=== PATIENT | female | born 1945 | race Two or more races ===

== ENCOUNTER 2022-02-25 13:00 | Inpatient (IN) | payer OTHER, MEDICARE, MEDICAID ==
[~2022-02-25] VITALS: Ht 152.4 cm; Wt 53.4 kg
[2022-02-25 14:30] LABS: Basophils # (auto) 0.1 10 ^3/uL (0-0.2); Basophils % (auto) 1.4 % (0.0-2.0); Eosinophils # (auto) 0.5 10 ^3/uL (0-0.8); Eosinophils % (auto) 7.4 % (0.0-7.0); Hemoglobin 10.6 g/dL (12.2-16.2); Lymphocytes # (auto) 2.2 10 ^3/uL (0.4-5.4); Lymphocytes % (auto) 36.2 % (10.0-50.0); Mean Corpuscular Hemoglobin 28.2 pg (28.0-32.0); Monocytes # (auto) 0.5 10 ^3/uL (0-1.3); Monocytes % (auto) 7.3 % (0.0-12.0); Neutrophils # (auto) 2.9 10 ^3/uL (1.6-8.6); Neutrophils % (auto) 47.7 % (37.0-80.0); Nucleated Red Blood Cells % 0.1 %; Red Blood Cells 3.74 10^6/uL (4.0-5.20); Red Cell Distribution Width 15.2 % (11.8-14.3); White Blood Cell 6.2 10^3/uL (4.4-10.8)
[2022-02-25 14:52] LABS: Anion Gap 9 (5-15); BUN/Creatinine Ratio 13.6; Blood Urea Nitrogen 44 mg/dL (7-18); Calcium 7.2 mg/dL (8.5-10.1); Carbon Dioxide 12 mmol/L (21-32); Chloride 121 mmol/L (98-107); GFR African American 18 mL/min; GFR Non-African American 15 mL/min; Glucose 78 mg/dL (74-106); Sodium 142 mmol/L (136-145)
[2022-02-25 15:01] LABS: Alanine Aminotransferase 9 U/L (13-56); Alkaline Phosphatase 137 U/L (45-117); Aspartate Aminotransferase 18 U/L (15-37); Bilirubin, Total 0.3 mg/dL (0.2-1.0); Total Protein 6.2 g/dL (6.4-8.2)
[2022-02-25 15:11] LABS: Potassium 5.8 mmol/L (3.5-5.1)
[2022-02-25] MEDS ORDERED: SODIUM ZIRCONIUM CYCL 10 GM PAK PO ONE (15:30)
[2022-02-25] MEDS ORDERED: InsuLIN REG 1unit/0.01ml Soln (100units/ml) IV ONE (15:30)
[2022-02-25] MEDS ORDERED: FUROSEMIDE 20 MG/2 ML VIAL IV ONE (15:30)
[2022-02-25] MEDS ORDERED: ENOXAPARIN SOD 60 MG/0.6 ML SYRINGE SC ONE (15:30)
[2022-02-25] MEDS ORDERED: CALCIUM GLUC 1,000mg/50ml-NS 50 ML IV ONE (15:30)
[2022-02-25] MEDS ORDERED: ALBUTEROL SULF 2.5 MG/0.5ML(0.5%) NEB SOLN NEB ONE (15:30)
[2022-02-25] MEDS ORDERED: DEXTROSE (50%) 50ML SYRG IV ONE (15:30)
[2022-02-25] MEDS ORDERED: SODIUM BICARBONATE 8.4% INJ 50ML SYRINGE IV ONE (15:30)
[2022-02-25] MEDS ORDERED: SODIUM CHLORIDE 0.9% 1,000 ML IV ONE ×2 (17:00→17:30)
[2022-02-25] MEDS ORDERED: ONDANSETRON HCL 4 MG/2 ML VIAL IV PRN (17:15)
[2022-02-25] MEDS ORDERED: NOREPINEPHRINE 8 MG/250ML KIT 250 ML IV SCH (17:30)
[2022-02-25] MEDS ORDERED: AMIODARONE HCL 150 MG in D5W 5% 100 ML IV ONE (18:15)
[2022-02-25] MEDS ORDERED: AMIODARONE 450mg/250ml AE 250 ML IV SCH (18:30)
[2022-02-25] MEDS: SODIUM CHLORIDE 0.9% 1,000 ML IV SCH (18:41)
[2022-02-25 18:58] LABS: Thyroid Stimulating Hormone 4.8 uIU/mL (0.358-3.74)
[2022-02-25] MEDS ORDERED: DEXTROSE (50%) 50ML SYRG IV PRN (20:00)
[2022-02-25 20:02] LABS: Magnesium 2.2 mg/dL (1.6-2.6)
[2022-02-25 22:31] LABS: Urine Bacteria FEW /hpf (None Seen); Urine Blood TRACE /uL (Negative); Urine Specific Gravity 1.008 (1.001-1.035); Urine WBC 3 /hpf (0 - 5)
[2022-02-25 22:43] LABS: Sodium Urine 43 mmol/L (40-220)
[2022-02-25 22:44] LABS: Creatinine, Urine 61 mg/dL (30.0-125.0)
[2022-02-25 22:46] LABS: Alcohol, Urine < 3.0 mg/dL (0-10); Amphetamine Screen, Urine NEGATIVE (NEGATIVE); Barbiturate Scree,Urine NEGATIVE (NEGATIVE); Benzodiazephine Screen, Urine NEGATIVE (NEGATIVE); Cannabinoid Screen, Urine NEGATIVE (NEGATIVE); Cocaine Screen, Urine NEGATIVE (NEGATIVE); Opiate Scree,Urine NEGATIVE (NEGATIVE); Phencyclidine Screen, Urine NEGATIVE (NEGATIVE)
[2022-02-26] MEDS: ACCU-CHEK COMFORT CURVE STRIP VI SCH ×4 (00:24→17:38)
[2022-02-26 06:50] LABS: Basophils # (auto) 0.1 10 ^3/uL (0-0.2); Basophils % (auto) 0.9 % (0.0-2.0); Eosinophils # (auto) 0.1 10 ^3/uL (0-0.8); Eosinophils % (auto) 1.1 % (0.0-7.0); Hematocrit 31.9 % (36.0-46.0); Lymphocytes # (auto) 2.6 10 ^3/uL (0.4-5.4); Lymphocytes % (auto) 25.3 % (10.0-50.0); Mean Corpuscular Hemoglobin 28.6 pg (28.0-32.0); Mean Corpuscular Hgb Conc. 31.5 g/dL (32.0-36.0); Mean Corpuscular Volume 90.9 fL (80.0-100.0); Monocytes # (auto) 0.7 10 ^3/uL (0-1.3); Monocytes % (auto) 6.7 % (0.0-12.0); Neutrophils # (auto) 6.7 10 ^3/uL (1.6-8.6); Nucleated Red Blood Cells % 0.1 %; Red Blood Cells 3.51 10^6/uL (4.0-5.20); Red Cell Distribution Width 15.1 % (11.8-14.3); White Blood Cell 10.1 10^3/uL (4.4-10.8)
[2022-02-26 07:08] LABS: Albumin 3.1 g/dL (3.4-5.0); Calcium 7.2 mg/dL (8.5-10.1); Potassium 4.9 mmol/L (3.5-5.1)
[2022-02-26 07:12] LABS: BUN/Creatinine Ratio 12.5; Bilirubin, Total 0.3 mg/dL (0.2-1.0); Total Protein 6.1 g/dL (6.4-8.2)
[2022-02-26] MEDS ORDERED: ENOXAPARIN SOD 60 MG/0.6 ML SYRINGE SC SCH (10:00)
[2022-02-26] MEDS: ENOXAPARIN SOD 60 MG/0.6 ML SYRINGE SC SCH (10:16)
[2022-02-26] MEDS: InsuLIN REG 1unit/0.01ml Soln (100units/ml) SC SCH ×4 (10:26→17:38)
[2022-02-26] MEDS: SODIUM CHLORIDE 0.9% 1,000 ML IV SCH ×3 (10:32→23:15)
[2022-02-26] MEDS: AMIODARONE HCL 200 MG TAB PO SCH ×2 (10:45→21:41)
[2022-02-26 16:08] VITALS: BP 150/84
[2022-02-26 20:20] VITALS: BP 158/67
[2022-02-26 22:00] VITALS: BP 169/67
[2022-02-27] VITALS (7 sets, daily range): BP systolic 129–162; BP diastolic 62–89
[2022-02-27] MEDS ORDERED: PANC3600 BC (04:31)
[2022-02-27] MEDS ORDERED: OMEP20TA PO (04:40)
[2022-02-27] MEDS ORDERED: LOPE2CAP PO (04:40)
[2022-02-27] MEDS ORDERED: DONETAB5 PO (04:40)
[2022-02-27] MEDS ORDERED: CETI10TA2 PO (04:40)
[2022-02-27] MEDS ORDERED: [UNRECOGNIZED DRUG - CODE] PO (04:40)
[2022-02-27] MEDS ORDERED: FERR325T20 PO (04:40)
[2022-02-27] MEDS ORDERED: ONDA-144 PO (04:40)
[2022-02-27] MEDS: ACCU-CHEK COMFORT CURVE STRIP VI SCH ×4 (05:41→17:46)
[2022-02-27] MEDS: InsuLIN REG 1unit/0.01ml Soln (100units/ml) SC SCH ×4 (05:41→17:46)
[2022-02-27 05:48] LABS: Basophils # (auto) 0.1 10 ^3/uL (0-0.2); Basophils % (auto) 1.2 % (0.0-2.0); Eosinophils # (auto) 0.5 10 ^3/uL (0-0.8); Eosinophils % (auto) 4.7 % (0.0-7.0); Hematocrit 33.8 % (36.0-46.0); Hemoglobin 10.8 g/dL (12.2-16.2); Lymphocytes # (auto) 2.3 10 ^3/uL (0.4-5.4); Lymphocytes % (auto) 21.5 % (10.0-50.0); Mean Corpuscular Hemoglobin 28.6 pg (28.0-32.0); Mean Corpuscular Hgb Conc. 31.9 g/dL (32.0-36.0); Mean Corpuscular Volume 89.7 fL (80.0-100.0); Monocytes # (auto) 0.8 10 ^3/uL (0-1.3); Monocytes % (auto) 7.1 % (0.0-12.0); Neutrophils % (auto) 65.5 % (37.0-80.0); Nucleated Red Blood Cells % 0.1 %; Red Blood Cells 3.76 10^6/uL (4.0-5.20); White Blood Cell 10.7 10^3/uL (4.4-10.8)
[2022-02-27 05:55] LABS: Calcium 7.3 mg/dL (8.5-10.1); Potassium 5.1 mmol/L (3.5-5.1)
[2022-02-27 05:57] LABS: BUN/Creatinine Ratio 13.6; Uric Acid 5.4 mg/dL (2.6-6.0)
[2022-02-27] MEDS ORDERED: SOD CHL 0.45% 1,000 ML IV SCH (08:00)
[2022-02-27] MEDS: ENOXAPARIN SOD 60 MG/0.6 ML SYRINGE SC SCH (09:55)
[2022-02-27] MEDS: AMIODARONE HCL 200 MG TAB PO SCH ×2 (09:55→22:09)
[2022-02-27] MEDS: SODIUM BICARBONATE 50ML VIAL 100 ML in D5W 5% 1,000 ML IV SCH ×2 (11:06→22:45)
[2022-02-27] MEDS ORDERED: hydrALAZINE HCL 20 MG/ML VL IV PRN (13:00)
[2022-02-27] MEDS ORDERED: METOPROLOL SUCCINATE XL 50 MG TAB PO ONE (13:00)
[2022-02-28] VITALS (8 sets, daily range): BP systolic 111–170; BP diastolic 51–76
[2022-02-28] MEDS: ACCU-CHEK COMFORT CURVE STRIP VI SCH ×4 (00:31→18:00)
[2022-02-28] MEDS: InsuLIN REG 1unit/0.01ml Soln (100units/ml) SC SCH ×4 (00:31→18:21)
[2022-02-28] MEDS: ACETAMINOPHEN 500 MG TAB PO PRN ×2 (00:48→10:07)
[2022-02-28] MEDS: SODIUM BICARBONATE 50ML VIAL 100 ML in D5W 5% 1,000 ML IV SCH ×2 (06:45→11:17)
[2022-02-28] MEDS: AMIODARONE HCL 200 MG TAB PO SCH ×2 (09:36→21:31)
[2022-02-28] MEDS: APIXABAN 5 MG TAB PO SCH ×2 (09:39→21:31)
[2022-02-28] MEDS ORDERED: METOPROLOL SUCCINATE XL 50 MG TAB PO SCH (10:00)
[2022-02-28 21:07] LABS: Urine Bacteria FEW /hpf (None Seen); Urine Blood 3+ /uL (Negative); Urine Specific Gravity 1.009 (1.001-1.035); Urine WBC 1265 /hpf (0 - 5); Urine WBC Clumps PRESENT /hpf (None Seen)
[2022-02-28 21:19] LABS: Protein, Urine 45.1 mg/dL (0.0-11.9)
[2022-03-01] MEDS: ACCU-CHEK COMFORT CURVE STRIP VI SCH ×4 (00:13→18:24)
[2022-03-01] MEDS: SODIUM BICARBONATE 50ML VIAL 100 ML in D5W 5% 1,000 ML IV SCH (01:34)
[2022-03-01] MEDS ORDERED: LIDOCAINE 2%HCL (LOCAL ANESTH.) INJ 20ML MDV ONE (04:34)
[2022-03-01 04:39] VITALS: BP 134/53
[2022-03-01 05:33] LABS: Albumin 2.5 g/dL (3.4-5.0); BUN/Creatinine Ratio 10.8; Calcium 6.7 mg/dL (8.5-10.1); Potassium 4.3 mmol/L (3.5-5.1)
[2022-03-01 05:35] LABS: Bilirubin, Total 0.4 mg/dL (0.2-1.0); Total Protein 5.5 g/dL (6.4-8.2)
[2022-03-01] MEDS: InsuLIN REG 1unit/0.01ml Soln (100units/ml) SC SCH ×4 (06:00→18:00)
[2022-03-01 07:34] VITALS: BP 130/64
[2022-03-01 07:55] VITALS: BP 130/64
[2022-03-01] MEDS: AMIODARONE HCL 200 MG TAB PO SCH ×2 (10:15→21:45)
[2022-03-01] MEDS: APIXABAN 5 MG TAB PO SCH ×2 (10:15→21:45)
[2022-03-01] MEDS: SOD CHL 0.45% 1,000 ML IV SCH ×2 (10:16→20:20)
[2022-03-01 12:09] VITALS: BP 142/69
[2022-03-01 22:00] VITALS: BP 135/57
[2022-03-02] MEDS: InsuLIN REG 1unit/0.01ml Soln (100units/ml) SC SCH ×5 (00:25→23:46)
[2022-03-02] MEDS: ACCU-CHEK COMFORT CURVE STRIP VI SCH ×5 (00:26→23:44)
[2022-03-02 05:00] VITALS: BP 134/50
[2022-03-02 05:25] LABS: Basophils # (auto) 0.1 10 ^3/uL (0-0.2); Basophils % (auto) 0.4 % (0.0-2.0); Eosinophils # (auto) 0.2 10 ^3/uL (0-0.8); Eosinophils % (auto) 1.3 % (0.0-7.0); Hematocrit 31.9 % (36.0-46.0); Hemoglobin 10.4 g/dL (12.2-16.2); Lymphocytes # (auto) 1.9 10 ^3/uL (0.4-5.4); Lymphocytes % (auto) 12.4 % (10.0-50.0); Mean Corpuscular Hemoglobin 28.6 pg (28.0-32.0); Mean Corpuscular Hgb Conc. 32.5 g/dL (32.0-36.0); Monocytes # (auto) 1.3 10 ^3/uL (0-1.3); Monocytes % (auto) 8.4 % (0.0-12.0); Neutrophils # (auto) 11.7 10 ^3/uL (1.6-8.6); Neutrophils % (auto) 77.5 % (37.0-80.0); Red Blood Cells 3.63 10^6/uL (4.0-5.20); Red Cell Distribution Width 14.7 % (11.8-14.3); White Blood Cell 15.1 10^3/uL (4.4-10.8)
[2022-03-02 05:40] LABS: Albumin 2.5 g/dL (3.4-5.0); Calcium 6.7 mg/dL (8.5-10.1); Potassium 4.3 mmol/L (3.5-5.1)
[2022-03-02 05:42] LABS: BUN/Creatinine Ratio 12.5
[2022-03-02 05:45] LABS: Bilirubin, Total 0.4 mg/dL (0.2-1.0); Total Protein 5.4 g/dL (6.4-8.2)
[2022-03-02] MEDS: LEVOTHYROXINE SODIUM 50 MCG TAB PO SCH (06:23)
[2022-03-02] MEDS: SOD CHL 0.45% 1,000 ML IV SCH ×3 (06:34→19:37)
[2022-03-02 09:00] VITALS: BP 138/63
[2022-03-02] MEDS: APIXABAN 5 MG TAB PO SCH ×2 (09:08→21:48)
[2022-03-02] MEDS: AMIODARONE HCL 200 MG TAB PO SCH ×2 (09:08→21:48)
[2022-03-02] MEDS: LISINOPRIL 10 MG TAB PO SCH (09:09)
[2022-03-02 13:00] VITALS: BP 162/65
[2022-03-02 22:00] VITALS: BP 135/54
[2022-03-03 05:00] VITALS: BP 129/52
[2022-03-03] MEDS: SOD CHL 0.45% 1,000 ML IV SCH (05:30)
[2022-03-03] MEDS: InsuLIN REG 1unit/0.01ml Soln (100units/ml) SC SCH ×2 (06:00→12:00)
[2022-03-03] MEDS: ACCU-CHEK COMFORT CURVE STRIP VI SCH ×2 (06:02→12:19)
[2022-03-03] MEDS: LEVOTHYROXINE SODIUM 50 MCG TAB PO SCH (06:03)
[2022-03-03] MEDS: AMIODARONE HCL 200 MG TAB PO SCH (08:48)
[2022-03-03] MEDS: APIXABAN 5 MG TAB PO SCH (08:49)
[2022-03-03] MEDS: LISINOPRIL 10 MG TAB PO SCH (08:49)
== END 2022-03-03 16:46 | DRG 280 ==
LOC: ER 13:00 → EDBD 13:00 → TELE 17:32 → TELE-CENTR 02-26 15:46
PROVIDERS: ADMIT Nurse Practitioner Family; ATTEND Family Medicine
PROC: 05HB33Z Insertion of Infusion Device into Right Basilic Vein, Percutaneous Approach (ICD-10-PCS; principal; 2022-02-25)
PROC: B54MZZA Ultrasonography of Right Upper Extremity Veins, Guidance (ICD-10-PCS; 2022-02-25)
DX: I48.0 Paroxysmal atrial fibrillation (principal); G92.8 Other toxic encephalopathy; I21.A1 Myocardial infarction type 2; N18.6 End stage renal disease; E87.0 Hyperosmolality and hypernatremia; I13.2 Hypertensive heart and chronic kidney disease with heart failure and with stage 5 chronic kidney disease, or end stage renal disease; I50.32 Chronic diastolic (congestive) heart failure; N17.9 Acute kidney failure, unspecified; E87.1 Hypo-osmolality and hyponatremia; D63.8 Anemia in other chronic diseases classified elsewhere; E03.9 Hypothyroidism, unspecified; E11.22 Type 2 diabetes mellitus with diabetic chronic kidney disease; E11.51 Type 2 diabetes mellitus with diabetic peripheral angiopathy without gangrene; E86.0 Dehydration; E87.5 Hyperkalemia; G30.9 Alzheimer's disease, unspecified; H54.8 Legal blindness, as defined in USA; F02.80 Dementia in other diseases classified elsewhere, unspecified severity, without behavioral disturbance, psychotic disturbance, mood disturbance, and anxiety; Z20.822 Contact with and (suspected) exposure to COVID-19; I95.9 Hypotension, unspecified; R00.1 Bradycardia, unspecified; R62.7 Adult failure to thrive; E78.00 Pure hypercholesterolemia, unspecified; K44.9 Diaphragmatic hernia without obstruction or gangrene; Z79.01 Long term (current) use of anticoagulants; Z79.4 Long term (current) use of insulin; Z79.899 Other long term (current) drug therapy; Z86.73 Personal history of transient ischemic attack (TIA), and cerebral infarction without residual deficits; Z90.710 Acquired absence of both cervix and uterus
CPT/HCPCS: 36415; 70450; 71045; 74176; 76775; 80048; 80053; 80307; 81001; 82140; 82270; 82570; 82962; 83036; 83605; 83615; 83735; 84100; 84132; 84156; 84300; 84443; 84484; 84550; 85025; 85048; 87040; 87045; 87081; 87086; 87426; 87427; 87493; 93005; 93886; 94640; 96365; 96375; 97163; G0378; J1815; J7060

== ENCOUNTER 2022-03-12 10:33 | Inpatient (IN) | payer MEDICARE, MEDICAID ==
[~2022-03-12] VITALS: Ht 160 cm; Wt 54.2 kg
[~2022-03-12 10:33] MED LIST: CETI10TA2 PO; DONETAB5 PO; FERR325T20 PO; LOPE2CAP PO; OMEP20TA PO; ONDA-144 PO; PANC3600 BC; [UNRECOGNIZED DRUG - CODE] PO
[2022-03-12] MEDS ORDERED: SODIUM CHLORIDE 0.9% 500 ML IVB ONE (11:00)
[2022-03-12] MEDS ORDERED: PANTOPRAZOLE 40 MG/10 ML VIAL INJ IV ONE ×2 (11:00→14:00)
[2022-03-12] MEDS ORDERED: ONDANSETRON HCL 4 MG/2 ML VIAL IV ONE (11:00)
[2022-03-12] MEDS ORDERED: MORPHINE SULFATE 4 MG/ML SYR/VIAL IV ONE (11:00)
[2022-03-12 11:46] LABS: Eosinophils # (auto) 0.4 10 ^3/uL (0-0.8); Hemoglobin 8.9 g/dL (12.2-16.2); Lymphocytes # (auto) 1.5 10 ^3/uL (0.4-5.4); Monocytes # (auto) 0.5 10 ^3/uL (0-1.3)
[2022-03-12 11:48] LABS: Basophils # (auto) 0.1 10 ^3/uL (0-0.2); Basophils % (auto) 0.9 % (0.0-2.0); Eosinophils % (auto) 5.7 % (0.0-7.0); Lymphocytes % (auto) 23.5 % (10.0-50.0); Mean Corpuscular Hemoglobin 28.5 pg (28.0-32.0); Mean Corpuscular Hgb Conc. 31.8 g/dL (32.0-36.0); Mean Corpuscular Volume 89.7 fL (80.0-100.0); Monocytes % (auto) 8.3 % (0.0-12.0); Neutrophils # (auto) 3.9 10 ^3/uL (1.6-8.6); Neutrophils % (auto) 61.6 % (37.0-80.0); Red Blood Cells 3.12 10^6/uL (4.0-5.20); Red Cell Distribution Width 14.8 % (11.8-14.3); White Blood Cell 6.4 10^3/uL (4.4-10.8)
[2022-03-12 12:03] LABS: INR 1.02 (0.9-1.15); Partial Thromboplastin Time 32.8 sec (24.6-33.4)
[2022-03-12 12:08] LABS: Anion Gap 6 (5-15); Carbon Dioxide 21 mmol/L (21-32); Chloride 114 mmol/L (98-107); Sodium 141 mmol/L (136-145)
[2022-03-12 12:09] LABS: Alanine Aminotransferase 9 U/L (13-56); Albumin 2.2 g/dL (3.4-5.0); Alkaline Phosphatase 150 U/L (45-117); Amylase 67 U/L (25-115); Aspartate Aminotransferase 11 U/L (15-37); BUN/Creatinine Ratio 17.3; Bilirubin, Total 0.2 mg/dL (0.2-1.0); Blood Urea Nitrogen 62 mg/dL (7-18); Calcium 7.7 mg/dL (8.5-10.1); GFR African American 16 mL/min; GFR Non-African American 13 mL/min; Glucose 157 mg/dL (74-106); Lipase 135 U/L (73-393); Total Protein 6.1 g/dL (6.4-8.2)
[2022-03-12 12:11] LABS: Potassium 5.7 mmol/L (3.5-5.1)
[2022-03-12] MEDS ORDERED: MORPHINE SULFATE INJ 2 MG/ml SYRG IV PRN (13:30)
[2022-03-12] MEDS ORDERED: NITROGLYCERIN 0.4 MG SL TAB SL PRN (13:30)
[2022-03-12] MEDS ORDERED: InsuLIN REG 1unit/0.01ml Soln (100units/ml) IV ONE (14:00)
[2022-03-12] MEDS ORDERED: ALBUTEROL SULF 2.5 MG/0.5ML(0.5%) NEB SOLN NEB ONE (14:00)
[2022-03-12] MEDS ORDERED: SODIUM CHLORIDE 0.9% 1,000 ML IV SCH (14:00)
[2022-03-12] MEDS ORDERED: DEXTROSE (50%) 50ML SYRG IV ONE (14:00)
[2022-03-12] MEDS ORDERED: FUROSEMIDE 20 MG/2 ML VIAL IV ONE (14:00)
[2022-03-12] MEDS ORDERED: DEXTROSE (50%) 50ML SYRG IV PRN (14:00)
[2022-03-12] MEDS ORDERED: metroNIDAZOLE 500MG/100ML 100 ML IV ONE (14:15)
[2022-03-12] MEDS: InsuLIN REG 1unit/0.01ml Soln (100units/ml) SC SCH (17:00)
[2022-03-12] MEDS ORDERED: SODIUM CHLORIDE 0.9% 500 ML IV ONE (17:15)
[2022-03-12] MEDS ORDERED: ALBUMIN 25% 50 ML IV ONE (17:15)
[2022-03-12] MEDS: ACCU-CHEK COMFORT CURVE STRIP VI SCH (17:50)
[2022-03-12 18:45] LABS: Magnesium 3.1 mg/dL (1.6-2.6); Phosphorus 1.1 mg/dL (2.5-4.90)
[2022-03-12 19:11] LABS: Hematocrit 26.3 % (36.0-46.0); Hemoglobin 8.2 g/dL (12.2-16.2)
[2022-03-12] MEDS: SODIUM BICARBONATE 50ML VIAL 50 ML in SOD CHL 0.45% 1,000 ML IV SCH (19:19)
[2022-03-12 20:41] LABS: Urine Amorphous Crystal MOD /hpf (None Seen); Urine Bacteria MOD /hpf (None Seen); Urine Blood 3+ /uL (Negative); Urine WBC 2783 /hpf (0 - 5); Urine WBC Clumps PRESENT /hpf (None Seen)
[2022-03-12] MEDS ORDERED: NOREPINEPHRINE 8 MG/250ML KIT 250 ML IV SCH (21:15)
[2022-03-12 21:33] LABS: Protein, Urine 152.3 mg/dL (0.0-11.9)
[2022-03-12] MEDS: metroNIDAZOLE 500MG/100ML 100 ML IV SCH (23:31)
[2022-03-12] MEDS: PANTOPRAZOLE 40 MG/10 ML VIAL INJ IV SCH (23:31)
[2022-03-13 00:42] LABS: Lactic Acid w/Reflex 3.1 mmol/L (0.4-2.0)
[2022-03-13] MEDS: ACCU-CHEK COMFORT CURVE STRIP VI SCH ×5 (00:42→21:26)
[2022-03-13] MEDS: InsuLIN REG 1unit/0.01ml Soln (100units/ml) SC SCH ×5 (00:46→21:25)
[2022-03-13 05:20] LABS: Basophils # (auto) 0.1 10 ^3/uL (0-0.2); Basophils % (auto) 0.6 % (0.0-2.0); Eosinophils # (auto) 0.1 10 ^3/uL (0-0.8); Eosinophils % (auto) 0.9 % (0.0-7.0); Hematocrit 24.5 % (36.0-46.0); Hemoglobin 7.9 g/dL (12.2-16.2); Lymphocytes # (auto) 1.9 10 ^3/uL (0.4-5.4); Lymphocytes % (auto) 13.7 % (10.0-50.0); Mean Corpuscular Hemoglobin 28.9 pg (28.0-32.0); Mean Corpuscular Hgb Conc. 32.4 g/dL (32.0-36.0); Monocytes # (auto) 0.9 10 ^3/uL (0-1.3); Monocytes % (auto) 6.3 % (0.0-12.0); Neutrophils # (auto) 10.9 10 ^3/uL (1.6-8.6); Neutrophils % (auto) 78.5 % (37.0-80.0); Red Blood Cells 2.75 10^6/uL (4.0-5.20); Red Cell Distribution Width 14.7 % (11.8-14.3); White Blood Cell 13.8 10^3/uL (4.4-10.8)
[2022-03-13 05:29] LABS: Calcium 7.2 mg/dL (8.5-10.1)
[2022-03-13 05:46] LABS: Potassium 5.7 mmol/L (3.5-5.1)
[2022-03-13] MEDS ORDERED: SODIUM ZIRCONIUM CYCL 10 GM PAK PO ONE (06:45)
[2022-03-13] MEDS: metroNIDAZOLE 500MG/100ML 100 ML IV SCH ×3 (08:08→21:25)
[2022-03-13] MEDS: cefTRIAXone 1GM/50ML D5W 50 ML IV SCH (10:58)
[2022-03-13] MEDS: AMIODARONE HCL 200 MG TAB PO SCH ×2 (11:54→21:25)
[2022-03-13] MEDS: AZITHROMYCIN 500MG/ 250ML 250 ML IV SCH (11:54)
[2022-03-13] MEDS: PANTOPRAZOLE 40 MG/10 ML VIAL INJ IV SCH ×2 (11:54→21:25)
[2022-03-13] MEDS: SODIUM ZIRCONIUM CYCL 10 GM PAK PO SCH ×2 (17:11→23:31)
[2022-03-13] MEDS: SODIUM BICARBONATE 50ML VIAL 50 ML in SOD CHL 0.45% 1,000 ML IV SCH (17:11)
[2022-03-13 19:00] VITALS: BP 132/62
[2022-03-13] MEDS ORDERED: LISI-711 PO (21:55)
[2022-03-13] MEDS ORDERED: LEV50T PO (21:55)
[2022-03-13] MEDS ORDERED: AMIO200T33 PO (21:55)
[2022-03-13] MEDS ORDERED: ACET325T82 PO (21:55)
[2022-03-13] MEDS ORDERED: APIX5TAB PO (21:55)
[2022-03-14 05:00] VITALS: BP 110/65
[2022-03-14] MEDS: metroNIDAZOLE 500MG/100ML 100 ML IV SCH ×3 (06:07→21:59)
[2022-03-14] MEDS: SODIUM ZIRCONIUM CYCL 10 GM PAK PO SCH (06:07)
[2022-03-14] MEDS: InsuLIN REG 1unit/0.01ml Soln (100units/ml) SC SCH ×4 (06:08→22:00)
[2022-03-14] MEDS: ACCU-CHEK COMFORT CURVE STRIP VI SCH ×4 (06:08→22:00)
[2022-03-14 07:14] LABS: Urine Bacteria NONE SEEN /hpf (None Seen); Urine Blood 3+ /uL (Negative); Urine Specific Gravity 1.012 (1.001-1.035); Urine WBC 728 /hpf (0 - 5); Urine WBC Clumps PRESENT /hpf (None Seen)
[2022-03-14 08:15] VITALS: BP 91/46
[2022-03-14] MEDS: cefTRIAXone 1GM/50ML D5W 50 ML IV SCH (08:56)
[2022-03-14 09:00] VITALS: BP 91/46
[2022-03-14] MEDS: PANTOPRAZOLE 40 MG/10 ML VIAL INJ IV SCH ×2 (09:44→21:59)
[2022-03-14] MEDS: AZITHROMYCIN 500MG/ 250ML 250 ML IV SCH (09:44)
[2022-03-14] MEDS: AMIODARONE HCL 200 MG TAB PO SCH ×2 (09:44→22:00)
[2022-03-14 12:13] LABS: Hematocrit 24.4 % (36.0-46.0); Hemoglobin 7.7 g/dL (12.2-16.2)
[2022-03-14 12:15] LABS: Mean Corpuscular Hemoglobin 28.3 pg (28.0-32.0); Mean Corpuscular Hgb Conc. 31.5 g/dL (32.0-36.0); Mean Corpuscular Volume 89.9 fL (80.0-100.0); Red Blood Cells 2.72 10^6/uL (4.0-5.20); Red Cell Distribution Width 15.1 % (11.8-14.3); White Blood Cell 6.7 10^3/uL (4.4-10.8)
[2022-03-14 12:21] LABS: Basophils % (manual) 0 (0.0-2.0); Blast Cells 0; Myelocytes % 0; Promyelocytes % 0; Reactive Lymphocytes 0
[2022-03-14 12:30] LABS: BUN/Creatinine Ratio 14.6; Calcium 6.7 mg/dL (8.5-10.1); Potassium 4.4 mmol/L (3.5-5.1)
[2022-03-14 12:44] LABS: Band Neutrophils % (manual) 3; Eosinophils % (manual) 7 (0-7); Lymphocytes % (manual) 16 (10.0-50.0); Metamyelocytes % 1; Monocytes % (manual) 3 (0-12)
[2022-03-14 13:00] VITALS: BP 106/58
[2022-03-14] MEDS: HYDROcodone-ACET 5/325MG TAB PO PRN (13:43)
[2022-03-14] MEDS: SODIUM BICARBONATE 50ML VIAL 50 ML in SOD CHL 0.45% 1,000 ML IV SCH (16:19)
[2022-03-14 16:58] VITALS: BP 116/58
[2022-03-14 21:52] VITALS: BP 116/70
[2022-03-15 04:43] VITALS: BP 117/51
[2022-03-15] MEDS: SODIUM BICARBONATE 50ML VIAL 50 ML in SOD CHL 0.45% 1,000 ML IV SCH ×3 (04:58→21:00)
[2022-03-15] MEDS: InsuLIN REG 1unit/0.01ml Soln (100units/ml) SC SCH ×4 (06:21→22:00)
[2022-03-15] MEDS: ACCU-CHEK COMFORT CURVE STRIP VI SCH ×4 (06:21→22:00)
[2022-03-15] MEDS: metroNIDAZOLE 500MG/100ML 100 ML IV SCH ×3 (06:21→22:45)
[2022-03-15] MEDS: cefTRIAXone 1GM/50ML D5W 50 ML IV SCH (10:29)
[2022-03-15] MEDS: AMIODARONE HCL 200 MG TAB PO SCH ×2 (10:39→22:45)
[2022-03-15] MEDS: HYDROcodone-ACET 5/325MG TAB PO PRN (10:39)
[2022-03-15] MEDS: PANTOPRAZOLE 40 MG/10 ML VIAL INJ IV SCH ×2 (10:42→22:45)
[2022-03-15] MEDS: AZITHROMYCIN 500MG/ 250ML 250 ML IV SCH (10:42)
[2022-03-15 12:32] VITALS: BP 134/62
[2022-03-15 16:48] VITALS: BP 122/54
[2022-03-15] MEDS ORDERED: levoFLOXacin 500MG 100 ML IV ONE (20:30)
[2022-03-15 22:00] VITALS: BP 138/53
[2022-03-15] MEDS ORDERED: SODIUM FERR GLUC 62.5MG/5ML 125 MG in SODIUM CHL 0.9% 100 ML IV ONE (23:15)
[2022-03-16] MEDS: SODIUM BICARBONATE 50ML VIAL 50 ML in SOD CHL 0.45% 1,000 ML IV SCH (03:00)
[2022-03-16 05:00] VITALS: BP 120/50
[2022-03-16] MEDS: HYDROcodone-ACET 5/325MG TAB PO PRN (05:24)
[2022-03-16] MEDS: metroNIDAZOLE 500MG/100ML 100 ML IV SCH (05:26)
[2022-03-16] MEDS: InsuLIN REG 1unit/0.01ml Soln (100units/ml) SC SCH ×4 (07:00→21:19)
[2022-03-16] MEDS: ACCU-CHEK COMFORT CURVE STRIP VI SCH ×4 (07:00→21:21)
[2022-03-16 08:00] VITALS: BP 133/61
[2022-03-16] MEDS: cefTRIAXone 1GM/50ML D5W 50 ML IV SCH (11:24)
[2022-03-16] MEDS: PANTOPRAZOLE 40 MG/10 ML VIAL INJ IV SCH ×2 (11:25→21:27)
[2022-03-16] MEDS: AMIODARONE HCL 200 MG TAB PO SCH ×2 (11:26→21:27)
[2022-03-16 13:00] VITALS: BP 140/63
[2022-03-16 13:56] LABS: Hepatitis C Antibody Negative (Negative)
[2022-03-16 16:59] VITALS: BP 151/40
[2022-03-16] MEDS ORDERED: IOHEXOL 350 MG/ML 100ML IJ ONE (17:02)
[2022-03-16] MEDS ORDERED: PROPOFOL 10 MG/ML 20 ML IV ONE (17:33)
[2022-03-16] MEDS ORDERED: IOHEXOL IJ ONE (17:55)
[2022-03-16] MEDS ORDERED: ONDANSETRON HCL 4 MG/2 ML VIAL ONE (18:13)
[2022-03-16] MEDS ORDERED: ONDANSETRON HCL 4 MG/2 ML VIAL IV ONE (18:30)
[2022-03-16 20:00] VITALS: BP 131/61
[2022-03-16 22:00] VITALS: BP 131/61
[2022-03-17 05:00] VITALS: BP 115/49
[2022-03-17] MEDS: SODIUM BICARBONATE 50ML VIAL 50 ML in SOD CHL 0.45% 1,000 ML IV SCH ×2 (06:25→15:00)
[2022-03-17] MEDS: InsuLIN REG 1unit/0.01ml Soln (100units/ml) SC SCH ×4 (06:26→22:26)
[2022-03-17] MEDS: ACCU-CHEK COMFORT CURVE STRIP VI SCH ×4 (06:26→22:25)
[2022-03-17 06:51] LABS: BUN/Creatinine Ratio 8.2; Calcium 6.7 mg/dL (8.5-10.1); Potassium 3.9 mmol/L (3.5-5.1)
[2022-03-17 07:12] LABS: Basophils # (auto) 0.1 10 ^3/uL (0-0.2); Eosinophils # (auto) 0.4 10 ^3/uL (0-0.8); Hemoglobin 8.3 g/dL (12.2-16.2); Lymphocytes # (auto) 1.4 10 ^3/uL (0.4-5.4); Monocytes # (auto) 0.6 10 ^3/uL (0-1.3); Nucleated Red Blood Cells % 0.1 %
[2022-03-17 07:15] LABS: Basophils % (auto) 0.9 % (0.0-2.0); Eosinophils % (auto) 5.6 % (0.0-7.0); Hematocrit 24.9 % (36.0-46.0); Lymphocytes % (auto) 21.5 % (10.0-50.0); Mean Corpuscular Hemoglobin 29.3 pg (28.0-32.0); Mean Corpuscular Hgb Conc. 33.1 g/dL (32.0-36.0); Mean Corpuscular Volume 88.4 fL (80.0-100.0); Monocytes % (auto) 9.4 % (0.0-12.0); Neutrophils # (auto) 4.2 10 ^3/uL (1.6-8.6); Neutrophils % (auto) 62.6 % (37.0-80.0); Red Blood Cells 2.82 10^6/uL (4.0-5.20); White Blood Cell 6.7 10^3/uL (4.4-10.8)
[2022-03-17] MEDS: PANTOPRAZOLE 40 MG/10 ML VIAL INJ IV SCH ×2 (08:54→22:35)
[2022-03-17] MEDS: cefTRIAXone 1GM/50ML D5W 50 ML IV SCH (08:55)
[2022-03-17] MEDS: AMIODARONE HCL 200 MG TAB PO SCH ×2 (09:06→22:35)
[2022-03-17 09:30] VITALS: BP 127/67
[2022-03-17 13:00] VITALS: BP 123/62
[2022-03-17 20:00] VITALS: BP 115/49
[2022-03-17 23:16] VITALS: BP 138/60
[2022-03-18] MEDS: SODIUM BICARBONATE 50ML VIAL 50 ML in SOD CHL 0.45% 1,000 ML IV SCH ×2 (01:22→12:00)
[2022-03-18 04:36] VITALS: BP 140/59
[2022-03-18 06:19] LABS: BUN/Creatinine Ratio 7.5; Calcium 7.1 mg/dL (8.5-10.1); Potassium 4.4 mmol/L (3.5-5.1)
[2022-03-18] MEDS: ACCU-CHEK COMFORT CURVE STRIP VI SCH ×4 (06:28→21:43)
[2022-03-18] MEDS: InsuLIN REG 1unit/0.01ml Soln (100units/ml) SC SCH ×4 (06:29→21:43)
[2022-03-18 06:56] LABS: Urine Bacteria FEW /hpf (None Seen); Urine Blood 3+ /uL (Negative); Urine Specific Gravity 1.009 (1.001-1.035); Urine WBC 61 /hpf (0 - 5)
[2022-03-18 09:00] VITALS: BP 149/52
[2022-03-18] MEDS: AMIODARONE HCL 200 MG TAB PO SCH ×2 (09:21→22:11)
[2022-03-18] MEDS: PANTOPRAZOLE 40 MG/10 ML VIAL INJ IV SCH ×2 (09:21→22:11)
[2022-03-18] MEDS: cefTRIAXone 1GM/50ML D5W 50 ML IV SCH (09:21)
[2022-03-18 13:00] VITALS: BP 116/62
[2022-03-18 16:37] VITALS: BP 145/61
[2022-03-18 22:00] VITALS: BP 131/57
[2022-03-18] MEDS ORDERED: SODIUM BICARBONATE 8.4 % INJ 50ML VIAL IV ONE (22:55)
[2022-03-19] MEDS: SODIUM BICARBONATE 50ML VIAL 50 ML in SOD CHL 0.45% 1,000 ML IV SCH ×2 (00:30→10:11)
[2022-03-19 05:00] VITALS: BP 132/57
[2022-03-19] MEDS: InsuLIN REG 1unit/0.01ml Soln (100units/ml) SC SCH ×3 (06:57→17:00)
[2022-03-19] MEDS: ACCU-CHEK COMFORT CURVE STRIP VI SCH ×3 (06:57→18:40)
[2022-03-19 09:00] VITALS: BP 174/74
[2022-03-19] MEDS: cefTRIAXone 1GM/50ML D5W 50 ML IV SCH (09:02)
[2022-03-19] MEDS: AMIODARONE HCL 200 MG TAB PO SCH (09:02)
[2022-03-19] MEDS: PANTOPRAZOLE 40 MG/10 ML VIAL INJ IV SCH (09:02)
[2022-03-19] MEDS ORDERED: CEPH-510 PO (10:45)
[2022-03-19] MEDS ORDERED: NUTR-463 OR (10:49)
[2022-03-19 12:46] VITALS: BP 114/60
[2022-03-19] MEDS: HYDROcodone-ACET 5/325MG TAB PO PRN (16:31)
[2022-03-19 16:46] VITALS: BP 163/64
== END 2022-03-19 18:04 | disposition home or self-care (01) | DRG 377 ==
LOC: EDUNIT# 10:33 → ER 10:33 → EDBD 10:33 → TELE 13:32 → TELE-WESTW 03-13 18:19
PROVIDERS: ADMIT Registered Nurse; ATTEND Internal Medicine
PROC: 05HA33Z Insertion of Infusion Device into Left Brachial Vein, Percutaneous Approach (ICD-10-PCS; 2022-03-12)
PROC: B54NZZA Ultrasonography of Left Upper Extremity Veins, Guidance (ICD-10-PCS; 2022-03-12)
PROC: 0TJ98ZZ Inspection of Ureter, Via Natural or Artificial Opening Endoscopic (ICD-10-PCS; 2022-03-16)
PROC: BT1D1ZZ Fluoroscopy of Right Kidney, Ureter and Bladder using Low Osmolar Contrast (ICD-10-PCS; principal; 2022-03-16 17:29)
DX: K92.2 Gastrointestinal hemorrhage, unspecified (principal); I21.A1 Myocardial infarction type 2; J18.9 Pneumonia, unspecified organism; E87.20 Acidosis, unspecified; I50.32 Chronic diastolic (congestive) heart failure; N17.9 Acute kidney failure, unspecified; N18.5 Chronic kidney disease, stage 5; E44.0 Moderate protein-calorie malnutrition; I13.2 Hypertensive heart and chronic kidney disease with heart failure and with stage 5 chronic kidney disease, or end stage renal disease; N13.6 Pyonephrosis; N28.89 Other specified disorders of kidney and ureter; R62.7 Adult failure to thrive; D63.1 Anemia in chronic kidney disease; I48.0 Paroxysmal atrial fibrillation; D49.511 Neoplasm of unspecified behavior of right kidney; E87.5 Hyperkalemia; G30.9 Alzheimer's disease, unspecified; Z20.822 Contact with and (suspected) exposure to COVID-19; K44.9 Diaphragmatic hernia without obstruction or gangrene; F02.80 Dementia in other diseases classified elsewhere, unspecified severity, without behavioral disturbance, psychotic disturbance, mood disturbance, and anxiety; H54.61 Unqualified visual loss, right eye, normal vision left eye; J45.909 Unspecified asthma, uncomplicated; E03.9 Hypothyroidism, unspecified; R31.9 Hematuria, unspecified; R54 Age-related physical debility; E11.22 Type 2 diabetes mellitus with diabetic chronic kidney disease; E11.51 Type 2 diabetes mellitus with diabetic peripheral angiopathy without gangrene; E78.5 Hyperlipidemia, unspecified; Z79.01 Long term (current) use of anticoagulants; Z79.4 Long term (current) use of insulin; Z86.73 Personal history of transient ischemic attack (TIA), and cerebral infarction without residual deficits; Z90.710 Acquired absence of both cervix and uterus; Z68.21 Body mass index [BMI] 21.0-21.9, adult
CPT/HCPCS: 36415; 71045; 74018; 74176; 76000; 76775; 80048; 80053; 81001; 82150; 82270; 82306; 82570; 82962; 83605; 83690; 83735; 83880; 83970; 84100; 84132; 84156; 84300; 84443; 84484; 85007; 85014; 85018; 85025; 85027; 85610; 85730; 86803; 86850; 86900; 86901; 87040; 87081; 87086; 87088; 87186; 87340; 87426; 87493; 93005; 94640; C9113; G0378; J0696; J1815; J2405; J2704; J3490

== ENCOUNTER → 2022-04-01 | Outpatient (CLI) | payer MEDICARE, MEDICAID ==
[~2022-04-01] MED LIST changes: +ACET325T82 PO; +AMIO200T33 PO; +APIX5TAB PO; +CEPH-510 PO; +LEV50T PO; +LISI-711 PO; +NUTR-463 OR
[2022-04-01 11:49] LABS: Basophils # (auto) 0.1 10 ^3/uL (0-0.2); Basophils % (auto) 1.9 % (0.0-2.0); Eosinophils # (auto) 0.4 10 ^3/uL (0-0.8); Eosinophils % (auto) 6.8 % (0.0-7.0); Hematocrit 33.7 % (36.0-46.0); Hemoglobin 10.8 g/dL (12.2-16.2); Lymphocytes # (auto) 2.4 10 ^3/uL (0.4-5.4); Lymphocytes % (auto) 43.1 % (10.0-50.0); Mean Corpuscular Hemoglobin 29.2 pg (28.0-32.0); Mean Corpuscular Volume 91.1 fL (80.0-100.0); Monocytes # (auto) 0.5 10 ^3/uL (0-1.3); Monocytes % (auto) 8.5 % (0.0-12.0); Neutrophils # (auto) 2.3 10 ^3/uL (1.6-8.6); Neutrophils % (auto) 39.7 % (37.0-80.0); Red Cell Distribution Width 16.1 % (11.8-14.3); White Blood Cell 5.7 10^3/uL (4.4-10.8)
== END | disposition home or self-care (01) ==
LOC: LAB 11:27
PROVIDERS: ATTEND Internal Medicine
DX: D64.9 Anemia, unspecified (principal)
CPT/HCPCS: 36415; 85025